=== PATIENT | female | born 1950 | race Caucasian/White ===

== ENCOUNTER 2021-09-15 20:21 | Emergency (ER) | payer MEDICARE | END 2021-09-15 23:12 | disposition home or self-care (01) | LOC: ERS 20:21 | DX: M79.661 Pain in right lower leg (principal); Z73.6 Limitation of activities due to disability; E78.5 Hyperlipidemia, unspecified; E78.00 Pure hypercholesterolemia, unspecified; G35 Multiple sclerosis; W19.XXXA Unspecified fall, initial encounter ==

== ENCOUNTER 2024-03-20 20:42 | Emergency (ER) | payer MEDICARE ==
[~2024-03-20 20:42] MED LIST: Iopamidol-370 76% 500 ML MDV (1 ML CHARGE) ONE
[2024-03-20 21:09] LABS: #Basophils 0.05 10x3/uL (0.0-0.2); %Basophils 0.9 % (0.0-1.0); %Eosinophils 2.7 % (0.0-10.0); %Lymphocytes 28.9 % (21.0-51.0); %Monocytes 8.9 % (0.0-10.0); %Neutrophils 58.1 % (42.0-75.0); Hemoglobin 11.9 g/dL (12.0-16.0); Mean Corpuscular HGB CONC 33.1 g/dL (32.0-36.0); Mean Corpuscular Hemoglobin 30.6 pg (27.0-31.0); Mean Corpuscular Volume 92.5 fL (78.0-98.0); Platelet Count 201 10x3/uL (130-400); RBC Distribution Width 14.6 % (11.5-14.5); Red Blood Cell (RBC) Count 3.89 mill/uL (4.20-5.40)
[2024-03-20 21:58] LABS: ALT (SGPT) 14 U/L (8-55); AST (SGOT) 14 U/L (5-34); Albumin 3.4 g/dL (3.4-4.8); Alkaline Phosphatase 66 U/L (40-110); Anion Gap 15 mmol/L (10-20); BUN (Urea Nitrogen) 21 mg/dL (9.8-20.1); Bilirubin, Total 0.3 mg/dL (0.2-1.2); Calc. Creatinine Clearance 0 mL/min (70-130); Calcium 8.5 mg/dL (7.8-10.44); Carbon Dioxide 24 mmol/L (23-31); Chloride 104 mmol/L (98-107); Estimated GFR 54; Globulin 2.6 g/dL (2.4-3.5); Glucose 130 mg/dL (83-110); Potassium 3.8 mmol/L (3.5-5.1); Sodium 139 mmol/L (136-145)
[2024-03-20 22:03] LABS: Troponin I 0.012 ng/mL (< 0.028)
[2024-03-21] MEDS ORDERED: Pantoprazole 40 MG VIAL ONE (01:17)
[2024-03-21 01:34] LABS: Troponin I Less than 0.010 ng/mL (< 0.028)
== END 2024-03-21 02:25 | disposition home or self-care (01) ==
LOC: ERS 20:42
DX: K44.9 Diaphragmatic hernia without obstruction or gangrene (principal); R07.9 Chest pain, unspecified
CPT/HCPCS: 71045; 71275; 74177; 80053; 83690; 84484; 85025; 93005; J2470; 36415; 51701; 96374; Q9967